=== PATIENT | male | born 1955 | race African-American/Black ===

== ENCOUNTER 2021-10-08 00:52 | Inpatient (IN) ==
[2021-10-08] MEDS ORDERED: ASPIRIN 325 MG TABLET PO STA (01:17)
[2021-10-08] MEDS ORDERED: ALUM/MAG/SIMETH/LIDO VISC 1:1 30 ML BOTTLE PO STA (01:17)
[2021-10-08] MEDS ORDERED: ONDANSETRON 4 MG/2 ML VIAL IV STA (01:17)
[2021-10-08] MEDS ORDERED: NITROGLYCERIN 2% OINT 1 INCH/GM PACK TOP STA (01:17)
[2021-10-08 01:53] LABS: Basophils # 0.1 10*3/uL (0.0-0.2); Basophils % 0.5 % (0.0-0.8); Eosinophils # 0.2 10*3/uL (0.0-0.87); Eosinophils % 2.1 % (0.00-10.9); Immature Granulocytes % 0.5 %; Immature Granulocytes Absolute 0.05 #; Lymphocytes # 3.4 10*3/uL (1.4-4.0); Lymphocytes % 36.4 % (21.2-54.2); Mean Corpuscular HGB Conc 27.9 GM/DL (32-36); Mean Corpuscular Volume 63.3 FL (87-102); Mean Platelet Volume 9.2 FL (9.6-12.0); Monocytes # 0.9 10*3/uL (0.11-0.8); Monocytes % 9.1 % (1.7-12.7); NRBC # 0.04 10*3/uL; Neutrophils % 51.4 % (38.7-73.9); Platelet Count 653 T/CUMM (130-400); Red Blood Count 2.21 MC/CUMM (3.8-5.5); Red Cell Distribution Width 17.7 % (9.3-17.3); White Blood Count 9.5 T/CUMM (4-12)
[2021-10-08 01:54] LABS: Alanine Aminotransferase 30 U/L (16-61); Albumin 3.5 G/DL (3.4-5.0); Alkaline Phosphatase 62 U/L (45-117); Aspartate Amino Transferase 26 U/L (0-37); Bilirubin,Total < 0.39 MG/DL (0.20-1.00); Blood Urea Nitrogen 14 MG/DL (7-18); Calcium 8.9 MG/DL (8.5-10.1); Carbon Dioxide 23 MMOL/L (21-32); Chloride 107 MMOL/L (98-107); Estimated Glom Filtration Rate 80 ML/MIN; Glucose 165 MG/DL (74-106); Osmolality,Calculated 279.7 MOS/KG (273-304); Potassium 4.1 MMOL/L (3.5-5.1); Sodium 138 MMOL/L (136-145); Total Protein 7.1 G/DL (6.4-8.2)
[2021-10-08 01:58] LABS: Hypochromia 4+; Platelet Estimate Increased
[2021-10-08 01:59] LABS: Helmet Cells Few; Poikilocytosis 1+
[2021-10-08 02:01] LABS: Hemoglobin 3.9 GM/DL (14.0-18.0)
[2021-10-08 02:05] LABS: Eosinophils 4 % (0-10); Lymphocytes 29 % (20-55); Total Cells Counted 100
[2021-10-08 02:15] LABS: PT Patient Result 10.8 SECS (10.5-12.0)
[2021-10-08] MEDS ORDERED: SODIUM CHLORIDE 0.9% 1,000 ML IV PRN ×2 (02:27→02:32)
[2021-10-08] MEDS ORDERED: ACETAMINOPHEN 325 MG TABLET PO PRN (02:27)
[2021-10-08] MEDS ORDERED: ONDANSETRON 4 MG/2 ML VIAL IV PRN (02:27)
[2021-10-08 04:24] LABS: Basophils % 0.5 % (0.0-0.8); Eosinophils # 0.2 10*3/uL (0.0-0.87); Eosinophils % 2.4 % (0.00-10.9); Immature Granulocytes % 0.6 %; Immature Granulocytes Absolute 0.05 #; Lymphocytes % 37.2 % (21.2-54.2); Mean Corpuscular Volume 63.2 FL (87-102); Mean Platelet Volume 9.1 FL (9.6-12.0); Monocytes # 0.8 10*3/uL (0.11-0.8); Monocytes % 10.1 % (1.7-12.7); NRBC # 0.03 10*3/uL; Neutrophils % 49.2 % (38.7-73.9); Platelet Count 604 T/CUMM (130-400); Red Blood Count 2.23 MC/CUMM (3.8-5.5); Red Cell Distribution Width 17.5 % (9.3-17.3)
[2021-10-08 04:29] LABS: Hematocrit 14.1 VOL% (42.0-52.0); Hemoglobin 3.8 GM/DL (14.0-18.0)
[2021-10-08 04:45] LABS: Eosinophils 1 % (0-10); Hypochromia 3+; Lymphocytes 31 % (20-55); Total Cells Counted 100
[2021-10-08 04:46] LABS: Microcytosis 2+; Target Cells Few
[2021-10-08 04:47] LABS: Ovalocytes Slight; Platelet Estimate Increased; Polychromasia Slight
[2021-10-08 04:48] LABS: Folate 17.38 NG/ML (5.38-24.0); Vitamin B12 378 PG/ML (211-911)
[2021-10-08 05:30] LABS: Sedimentation Rate-Westergren 41 MM/HR (0-20)
[2021-10-08 07:16] LABS: Alanine Aminotransferase 25 U/L (16-61); Albumin 3.1 G/DL (3.4-5.0); Alkaline Phosphatase 56 U/L (45-117); Aspartate Amino Transferase 21 U/L (0-37); Bilirubin,Total < 0.39 MG/DL (0.20-1.00); Blood Urea Nitrogen 12 MG/DL (7-18); Calcium 8.6 MG/DL (8.5-10.1); Carbon Dioxide 23 MMOL/L (21-32); Chloride 108 MMOL/L (98-107); Estimated Glom Filtration Rate 88 ML/MIN; Glucose 111 MG/DL (74-106); Osmolality,Calculated 275.7 MOS/KG (273-304); Potassium 4.4 MMOL/L (3.5-5.1); Sodium 138 MMOL/L (136-145); Total Protein 6.6 G/DL (6.4-8.2)
[2021-10-08] MEDS: PANTOPRAZOLE 40 MG VIAL IV SCH ×2 (09:07→21:31)
[2021-10-08 09:09] LABS: Hemoglobin A1 (Alkaline) 98.4 % (96.5-98.5); Hemoglobin A2 (Alkaline) 1.6 % (1.5-3.5)
[2021-10-08 13:44] LABS: Hematocrit 22.5 VOL% (42.0-52.0)
[2021-10-08] MEDS ORDERED: MORPHINE 2 MG/1 ML SYRINGE IV SCH (16:00)
[2021-10-08] MEDS ORDERED: MORPHINE 2 MG/1 ML SYRINGE IV PRN (16:00)
[2021-10-08] MEDS: SODIUM CHLORIDE 0.9% 1,000 ML IV SCH (17:06)
[2021-10-08 17:40] LABS: Hematocrit 23.3 VOL% (42.0-52.0); Hemoglobin 6.9 GM/DL (14.0-18.0)
[2021-10-09 00:22] LABS: Hemoglobin 6.7 GM/DL (14.0-18.0)
[2021-10-09 05:18] LABS: Hematocrit 21.8 VOL% (42.0-52.0); Hemoglobin 6.5 GM/DL (14.0-18.0)
[2021-10-09 05:22] LABS: Basophils # 0.1 10*3/uL (0.0-0.2); Basophils % 0.6 % (0.0-0.8); Eosinophils # 0.3 10*3/uL (0.0-0.87); Eosinophils % 2.8 % (0.00-10.9); Hematocrit 21.8 VOL% (42.0-52.0); Hemoglobin 6.5 GM/DL (14.0-18.0); Immature Granulocytes % 0.5 %; Immature Granulocytes Absolute 0.05 #; Lymphocytes # 2.4 10*3/uL (1.4-4.0); Lymphocytes % 22.6 % (21.2-54.2); Mean Corpuscular HGB Conc 29.8 GM/DL (32-36); Mean Corpuscular Volume 71.2 FL (87-102); Mean Platelet Volume 9.1 FL (9.6-12.0); Monocytes # 0.9 10*3/uL (0.11-0.8); Monocytes % 8.8 % (1.7-12.7); NRBC # 0.03 10*3/uL; Neutrophils % 64.7 % (38.7-73.9); Platelet Count 537 T/CUMM (130-400); Red Blood Count 3.06 MC/CUMM (3.8-5.5); Red Cell Distribution Width 23.9 % (9.3-17.3); White Blood Count 10.6 T/CUMM (4-12)
[2021-10-09 05:41] LABS: Acanthocytes Few; Hypochromia 2+; Platelet Estimate Increased; Poikilocytosis Slight
[2021-10-09 06:30] LABS: Alanine Aminotransferase 24 U/L (16-61); Albumin 2.9 G/DL (3.4-5.0); Alkaline Phosphatase 53 U/L (45-117); Aspartate Amino Transferase 18 U/L (0-37); Bilirubin,Total < 0.39 MG/DL (0.20-1.00); Blood Urea Nitrogen 13 MG/DL (7-18); Carbon Dioxide 24 MMOL/L (21-32); Chloride 109 MMOL/L (98-107); Estimated Glom Filtration Rate 86 ML/MIN; Glucose 111 MG/DL (74-106); Osmolality,Calculated 275.7 MOS/KG (273-304); Potassium 4.1 MMOL/L (3.5-5.1); Sodium 138 MMOL/L (136-145); Total Protein 6.5 G/DL (6.4-8.2)
[2021-10-09] MEDS: PANTOPRAZOLE 40 MG VIAL IV SCH ×2 (09:56→21:40)
[2021-10-09 12:01] LABS: Hemoglobin 6.9 GM/DL (14.0-18.0)
[2021-10-09] MEDS: SODIUM CHLORIDE 0.9% 1,000 ML IV SCH (13:06)
[2021-10-09 18:39] LABS: Hematocrit 23.2 VOL% (42.0-52.0); Hemoglobin 7.4 GM/DL (14.0-18.0)
[2021-10-10 00:49] LABS: Hematocrit 23.4 VOL% (42.0-52.0); Hemoglobin 7.4 GM/DL (14.0-18.0)
[2021-10-10 06:35] LABS: Basophils # 0.1 10*3/uL (0.0-0.2); Basophils % 0.7 % (0.0-0.8); Eosinophils # 0.3 10*3/uL (0.0-0.87); Eosinophils % 3.2 % (0.00-10.9); Hematocrit 23.9 VOL% (42.0-52.0); Hematocrit 24.2 VOL% (42.0-52.0); Immature Granulocytes % 0.4 %; Immature Granulocytes Absolute 0.04 #; Lymphocytes # 2.5 10*3/uL (1.4-4.0); Lymphocytes % 25.1 % (21.2-54.2); Mean Corpuscular HGB Conc 29.3 GM/DL (32-36); Mean Platelet Volume 9.6 FL (9.6-12.0); Monocytes % 9.7 % (1.7-12.7); NRBC # 0.02 10*3/uL; Neutrophils % 60.9 % (38.7-73.9); Platelet Count 581 T/CUMM (130-400); Red Blood Count 3.32 MC/CUMM (3.8-5.5); Red Cell Distribution Width 25.2 % (9.3-17.3); White Blood Count 9.9 T/CUMM (4-12)
[2021-10-10 06:46] LABS: Alanine Aminotransferase 25 U/L (16-61); Alkaline Phosphatase 62 U/L (45-117); Aspartate Amino Transferase 19 U/L (0-37); Bilirubin,Total < 0.39 MG/DL (0.20-1.00); Blood Urea Nitrogen 14 MG/DL (7-18); Calcium 8.8 MG/DL (8.5-10.1); Carbon Dioxide 23 MMOL/L (21-32); Chloride 107 MMOL/L (98-107); Estimated Glom Filtration Rate 86 ML/MIN; Glucose 138 MG/DL (74-106); Sodium 136 MMOL/L (136-145)
[2021-10-10 07:06] LABS: Anisocytosis 2+; Hypochromia 1+; Platelet Estimate Increased; Poikilocytosis Slight; Target Cells 1+
[2021-10-10 07:07] LABS: Acanthocytes Few; Burr Cells Few
[2021-10-10] MEDS: PANTOPRAZOLE 40 MG VIAL IV SCH ×2 (08:21→21:09)
[2021-10-10] MEDS: SODIUM CHLORIDE 0.9% 1,000 ML IV SCH (08:25)
[2021-10-10 11:51] LABS: Hematocrit 23.7 VOL% (42.0-52.0); Hemoglobin 7.2 GM/DL (14.0-18.0)
[2021-10-10] MEDS: FERRIC GLUCONATE COMPLEX 125 MG in SODIUM CHLORIDE 0.9% 100 ML IV SCH (15:37)
[2021-10-11] MEDS: SODIUM CHLORIDE 0.9% 1,000 ML IV SCH ×3 (00:38→21:22)
[2021-10-11 06:16] LABS: Basophils # 0.1 10*3/uL (0.0-0.2); Basophils % 0.5 % (0.0-0.8); Eosinophils # 0.3 10*3/uL (0.0-0.87); Eosinophils % 3.1 % (0.00-10.9); Hematocrit 23.8 VOL% (42.0-52.0); Hemoglobin 6.9 GM/DL (14.0-18.0); Immature Granulocytes % 0.8 %; Immature Granulocytes Absolute 0.08 #; Lymphocytes # 2.2 10*3/uL (1.4-4.0); Lymphocytes % 22.4 % (21.2-54.2); Mean Corpuscular Volume 70.8 FL (87-102); Mean Platelet Volume 9.6 FL (9.6-12.0); Monocytes # 0.9 10*3/uL (0.11-0.8); Monocytes % 8.9 % (1.7-12.7); NRBC # 0.03 10*3/uL; Neutrophils % 64.3 % (38.7-73.9); Platelet Count 594 T/CUMM (130-400); Red Blood Count 3.36 MC/CUMM (3.8-5.5); Red Cell Distribution Width 25.5 % (9.3-17.3); White Blood Count 9.9 T/CUMM (4-12)
[2021-10-11 06:37] LABS: Calcium 8.9 MG/DL (8.5-10.1); Osmolality,Calculated 275.7 MOS/KG (273-304); Potassium 3.7 MMOL/L (3.5-5.1)
[2021-10-11] MEDS ORDERED: DIAZEPAM 5 MG TABLET PO ONE (09:16)
[2021-10-11] MEDS: PANTOPRAZOLE 40 MG VIAL IV SCH ×2 (09:37→21:20)
[2021-10-11 09:59] LABS: AFP Tumor 14.9 NG/ML (0-8); Carcinoembryonic Antigen 14.4 NG/ML (0.0-5.0)
[2021-10-11 10:04] LABS: Cancer Antigen 19-9 47.19 U/ML (0-35)
[2021-10-11] MEDS: FERRIC GLUCONATE COMPLEX 125 MG in SODIUM CHLORIDE 0.9% 100 ML IV SCH (11:58)
[2021-10-11] MEDS ORDERED: propofoL 200 MG/20 ML VIAL IV ONE (12:57)
[2021-10-11] MEDS ORDERED: LIDOCAINE 2% 5 ML VIAL ONE (12:57)
[2021-10-11] MEDS: BISACODYL 5 MG TABLET PO SCH (19:45)
[2021-10-11] MEDS ORDERED: POLYETHYLENE GLYCOL POWDER 255 GM BOTTLE PO ONE (20:00)
[2021-10-11] MEDS ORDERED: MAGNESIUM CITRATE 300 ML BOTTLE PO ONE (21:00)
[2021-10-12] MEDS: BISACODYL 5 MG TABLET PO SCH ×2 (03:59→11:51)
[2021-10-12 05:19] LABS: Basophils # 0.1 10*3/uL (0.0-0.2); Basophils % 0.5 % (0.0-0.8); Eosinophils # 0.2 10*3/uL (0.0-0.87); Hematocrit 24.4 VOL% (42.0-52.0); Hemoglobin 7.1 GM/DL (14.0-18.0); Immature Granulocytes % 0.7 %; Immature Granulocytes Absolute 0.08 #; Lymphocytes # 2.2 10*3/uL (1.4-4.0); Lymphocytes % 20.1 % (21.2-54.2); Mean Corpuscular HGB Conc 29.1 GM/DL (32-36); Mean Platelet Volume 9.7 FL (9.6-12.0); Monocytes # 1.1 10*3/uL (0.11-0.8); NRBC # 0.03 10*3/uL; Neutrophils % 66.7 % (38.7-73.9); Platelet Count 535 T/CUMM (130-400); Red Blood Count 3.39 MC/CUMM (3.8-5.5); Red Cell Distribution Width 26.3 % (9.3-17.3); White Blood Count 11.1 T/CUMM (4-12)
[2021-10-12 05:46] LABS: Hypochromia 1+
[2021-10-12 05:47] LABS: Acanthocytes Few; Anisocytosis 1+; Microcytosis 1+; Polychromasia Slight
[2021-10-12 05:48] LABS: Platelet Estimate Increased
[2021-10-12] MEDS ORDERED: LIDOCAINE 2% 5 ML VIAL ONE (09:14)
[2021-10-12] MEDS ORDERED: propofoL 200 MG/20 ML VIAL IV ONE ×2 (09:14)
[2021-10-12] MEDS: PANTOPRAZOLE 40 MG VIAL IV SCH ×2 (10:17→21:03)
[2021-10-12] MEDS: FERRIC GLUCONATE COMPLEX 125 MG in SODIUM CHLORIDE 0.9% 100 ML IV SCH (10:18)
[2021-10-12] MEDS: SODIUM CHLORIDE 0.9% 1,000 ML IV SCH ×2 (20:07)
[2021-10-13 05:44] LABS: Basophils # 0.1 10*3/uL (0.0-0.2); Basophils % 0.6 % (0.0-0.8); Eosinophils # 0.3 10*3/uL (0.0-0.87); Eosinophils % 2.6 % (0.00-10.9); Hematocrit 25.7 VOL% (42.0-52.0); Hemoglobin 7.5 GM/DL (14.0-18.0); Immature Granulocytes % 1.4 %; Immature Granulocytes Absolute 0.16 #; Lymphocytes # 2.9 10*3/uL (1.4-4.0); Lymphocytes % 24.2 % (21.2-54.2); Mean Corpuscular HGB Conc 29.2 GM/DL (32-36); Mean Corpuscular Volume 72.6 FL (87-102); Mean Platelet Volume 9.3 FL (9.6-12.0); Monocytes % 8.4 % (1.7-12.7); NRBC # 0.04 10*3/uL; Neutrophils % 62.8 % (38.7-73.9); Platelet Count 530 T/CUMM (130-400); Red Blood Count 3.54 MC/CUMM (3.8-5.5); Red Cell Distribution Width 26.5 % (9.3-17.3); White Blood Count 11.8 T/CUMM (4-12)
[2021-10-13 05:59] LABS: Calcium 8.8 MG/DL (8.5-10.1); Osmolality,Calculated 278.5 MOS/KG (273-304); Potassium 3.8 MMOL/L (3.5-5.1)
[2021-10-13] MEDS: FERRIC GLUCONATE COMPLEX 125 MG in SODIUM CHLORIDE 0.9% 100 ML IV SCH (12:02)
[2021-10-13] MEDS: PANTOPRAZOLE 40 MG VIAL IV SCH ×2 (12:02→21:57)
[2021-10-13] MEDS ORDERED: SODIUM CHLORIDE 0.9% 1,000 ML IV PRN (14:26)
[2021-10-14] MEDS: SODIUM CHLORIDE 0.9% 1,000 ML IV SCH ×2 (00:30→13:54)
[2021-10-14 05:28] LABS: Basophils # 0.1 10*3/uL (0.0-0.2); Basophils % 0.5 % (0.0-0.8); Eosinophils # 0.3 10*3/uL (0.0-0.87); Eosinophils % 3.1 % (0.00-10.9); Hematocrit 28.1 VOL% (42.0-52.0); Hemoglobin 8.4 GM/DL (14.0-18.0); Immature Granulocytes % 0.9 %; Lymphocytes # 2.3 10*3/uL (1.4-4.0); Lymphocytes % 20.6 % (21.2-54.2); Mean Corpuscular HGB Conc 29.9 GM/DL (32-36); Mean Corpuscular Volume 76.2 FL (87-102); Mean Platelet Volume 9.6 FL (9.6-12.0); Monocytes # 0.9 10*3/uL (0.11-0.8); Monocytes % 8.3 % (1.7-12.7); NRBC # 0.03 10*3/uL; Neutrophils % 66.6 % (38.7-73.9); Platelet Count 425 T/CUMM (130-400); Red Blood Count 3.69 MC/CUMM (3.8-5.5); Red Cell Distribution Width 27.9 % (9.3-17.3)
[2021-10-14 05:52] LABS: Hypochromia 1+
[2021-10-14 05:53] LABS: Anisocytosis 2+; Polychromasia Few; Target Cells Slight
[2021-10-14 05:54] LABS: Acanthocytes Few
[2021-10-14] MEDS: FERRIC GLUCONATE COMPLEX 125 MG in SODIUM CHLORIDE 0.9% 100 ML IV SCH (08:33)
[2021-10-14] MEDS ORDERED: PANTOPRAZOLE 40 MG TABLET PO SCH (09:00)
[2021-10-14 11:44] VITALS: BP 136/72
== END 2021-10-14 15:57 | disposition home or self-care (01) | DRG 375 ==
LOC: N.ED 00:52 → N.EDINP 02:27 → N.5E 11:56
PROVIDERS: ADMIT Emergency Medicine; ATTEND Emergency Medicine
PROC: COLONBX (2021-10-12 06:35)